=== PATIENT | male | born 1975 | race Caucasian/White ===

== ENCOUNTER 2023-08-14 09:42 | Emergency (ER) | payer BC, SELFPAY ==
[2023-08-14 09:46] VITALS: BP 222/134; PULSE 74; RESP 16; TEMP 37.1; O2SAT 97; BMI 30.8
[2023-08-14 09:58] VITALS: O2SAT 97
[2023-08-14 09:59] VITALS: BP 203/117; PULSE 79; O2SAT 98
[2023-08-14 10:00] VITALS: BP 188/114; PULSE 78; O2SAT 98
--- NOTE | 2023-08-14 10:16 | ED.PSYCH ---
HPI - Psych General Chief Complaint: Psychiatric Symptoms Stated Complaint: panic attack since 08/02- want to talk Time Seen by Provider: 08/14/23 09:52 Source: patient Mode of arrival: Ambulatory History of Present Illness HPI Narrative: Patient is a 48-year-old male who states that several years ago he had quite a bit of issues with anxiety. He was on Zoloft. Was on clonazepam. He did go to counseling. He stated that he was able to get things under control and went quite a long time without any issues. Under the direction of his primary doctor the decision was made for him to stop his medications and he has been off of all of his medicines for least 2 years. Several weeks ago for an unknown reason he started to have anxiety once again. He has not suicidal. Not homicidal. Unsure exactly what is causing the symptoms. He states he was going from just general anxiety to overt panic attacks. He is here because he does not have a primary doctor in the local area. He would like to start back on his medications. In the past he was on 0.25 mg of clonazepam in the morning and 200 mg of Zoloft daily Related Data Previous Rx's Medication Instructions Recorded clonazepam 0.5 mg tablet 0.25 mg (1/2 x 0.5 mg) PO DAILY 08/14/23 #30 tabs sertraline 100 mg tablet (Zoloft) 100 mg PO DAILY #30 tabs 08/14/23 Review of Systems Constitutional Constitutional: Reports system reviewed and no additional complaints, except as documented Psychiatric Psychiatric: Reports system reviewed and no additional complaints, except as documented Patient History Social History Smoking Status: Never smoker Smoking Status: Never smoker Substance Use Type: does not use Exam Initial Vital Signs Initial Vital Signs: Vital Signs Temperature 98.8 F 08/14/23 09:46 Pulse Rate 74 08/14/23 09:46 Respiratory Rate 16 08/14/23 09:46 Blood Pressure 222/134 H 08/14/23 09:46 Pulse Oximetry 97 08/14/23 09:46 Oxygen Delivery Method Room Air 08/14/23 09:46 HENMT Head: normal to inspection and normocephalic Resp Effort & Inspection: normal respiratory effort Cardio Rate: regular rate Psych Other: Patient does appear to be somewhat anxious. Not suicidal. Not homicidal. Is cooperative. Scores GCS Maged coma scale eye opening: Spontaneous [place] coma scale verbal response: Orientated Maged coma scale motor response: Obey commands [place] coma scale total score: 15 Course Vital Signs Vital signs: Vital Signs - 8 hr 08/14/23 09:46 08/14/23 09:58 08/14/23 09:59 Temperature 98.8 F Pulse Rate 74 Respiratory Rate 16 Blood Pressure 222/134 H 203/117 H Pulse Oximetry 97 97 Oxygen Delivery Method Room Air 08/14/23 09:59 08/14/23 10:00 08/14/23 10:00 Temperature Pulse Rate 79 78 Respiratory Rate Blood Pressure 188/114 H Pulse Oximetry 98 98 Oxygen Delivery Method MDM - Psych MDM Narrative Medical decision making narrative: No indication for admission to the hospital. No indication for AYALA. Had a long discussion with the patient regarding his symptoms. We will start him back on clonazepam in the morning. He was on 200 mg of Zoloft but we will start him on 100 mg daily. He was given phone numbers to contact in order to establish a primary provider. He was given return precautions. He expressed understanding and agreement. Discharge Plan Departure Patient Disposition: Home Clinical Impression: Anxiety Instructions: DI for Anxiety -- Adult Activity Restrictions/Additional Instructions: It is important that you make contact with a primary doctor here in the local area. You can contact [phone] to help establish this appointment. Take the medications as directed. Return to the emergency department for new symptoms. Prescriptions: New sertraline [Zoloft] 100 mg tablet 100 mg PO DAILY Qty: 30 2RF clonazepam 0.5 mg tablet 0.25 mg PO DAILY Qty: 30 1RF Referrals: *Temp,ED* [Primary Care Provider] - Stand Alone Forms: Patient Portal/API
[2023-08-14 10:30] VITALS: BP 168/98; PULSE 80; O2SAT 97
== END 2023-08-14 10:53 | disposition home or self-care (01) ==
PROVIDERS: Emergency Provider Emergency Medicine
DX: F41.9 Anxiety disorder, unspecified (principal)
CPT/HCPCS: 99283